=== PATIENT | female | born 1980 | race African-American/Black ===

== ENCOUNTER 2021-09-25 07:15 | Emergency (ER) | payer MEDICAID ==
[~2021-09-25] VITALS: Ht 154.9 cm; Wt 63.0 kg
[2021-09-25] MEDS ORDERED: OXYCODONE HCL/ACETAMINOPHEN 5/325MG TABLET PO ONE (07:45)
[2021-09-25] MEDS ORDERED: T3 PO (08:55)
[2021-09-25] MEDS ORDERED: IBUP-2028 PO (08:57)
[2021-09-25 09:20] VITALS: BP 110/71
== END 2021-09-25 09:35 | disposition home or self-care (01) ==
LOC: ER 07:15
DX: M79.661 Pain in right lower leg (principal); Z86.718 Personal history of other venous thrombosis and embolism; Z79.01 Long term (current) use of anticoagulants
CPT/HCPCS: 99283